=== PATIENT | male | born 1960 | race Caucasian/White ===

== ENCOUNTER 2017-09-21 10:11 | Inpatient (IN) | payer OTHER ==
[2017-09-21] MEDS ORDERED: NEOMYC/POLYMYX/BACIT 30 GM OINT (13:09)
[2017-09-21] MEDS ORDERED: POLYMYXIN/BACITRACIN 1L IRRIG (13:09)
[2017-09-21] MEDS ORDERED: MEPERIDINE 100 MG INJ (13:23)
[2017-09-21] MEDS ORDERED: NEOSTIGMINE 3 MG/3 ML SYRINGE (13:23)
[2017-09-21] MEDS ORDERED: PROPOFOL 20 ML (13:23)
[2017-09-21] MEDS ORDERED: ROCURONIUM 50 MG INJ (13:23)
[2017-09-21] MEDS ORDERED: GLYCOPYRROLATE 0.4 MG INJ (13:23)
[2017-09-21] MEDS ORDERED: LIDOCAINE 2% (SDV) 5 ML INJ (13:23)
[2017-09-21] MEDS ORDERED: SUCCINYLCHOLINE CHLORIDE 100 MG/5 ML SYG IV (13:23)
[2017-09-21] MEDS: TRANEXAMIC ACID 1,000 MG in NS 100 ML PRE-OP X1 IVPB (13:30)
[2017-09-21] MEDS ORDERED: ATROPINE 1 MG/10 ML SYRINGE (13:47)
[2017-09-21] MEDS: TRANEXAMIC ACID 1,000 MG in NS 100 ML INTRA-OP X1 IVPB (13:58)
[2017-09-21] MEDS ORDERED: CEFAZOLIN 1 GM INJ (14:55)
[2017-09-21] MEDS ORDERED: FENTAnyl 50 MCG/ML VIAL (15:14)
[2017-09-21] MEDS ORDERED: HYDROmorphONE (0.2 MG/ML) 10ML SYG IV ×2 (15:23→15:30)
[2017-09-21] MEDS ORDERED: ONDANSETRON 4 MG INJ IV ×2 (15:30→21:30)
[2017-09-21] MEDS ORDERED: METOCLOPRAMIDE 10 MG INJ IV (15:30)
[2017-09-21] MEDS ORDERED: LABETALOL HCL 20MG INJ IV (15:30)
[2017-09-21] MEDS ORDERED: MEPERIDINE 25 MG INJ IV (15:30)
[2017-09-21] MEDS ORDERED: hydrALAzine 20 MG INJ IV (15:30)
[2017-09-21] MEDS ORDERED: FENTAnyl 50 MCG/ML VIAL IV ×2 (15:30)
[2017-09-21] MEDS ORDERED: EPHEDrine SULFATE 50 MG/5 ML SYG IV (15:30)
[2017-09-21] MEDS ORDERED: MIDAZOLAM 1 MG/ML 2 ML INJ IV (15:30)
[2017-09-21] MEDS ORDERED: OXYCODONE/ACETAMINOPHEN (5/325) TAB PO ×2 (15:30)
[2017-09-21] MEDS: HYDROmorphONE (0.2 MG/ML) 10ML SYG IV ×2 (15:33→15:51)
[2017-09-21] MEDS: DIPHENHYDRAMINE 50 MG INJ IV (15:51)
[2017-09-21] MEDS ORDERED: HYDROmorphONE 0.2 MG/ML PCA (15:58)
[2017-09-21] MEDS ORDERED: NALOXONE (0.4 MG/ML) INJ IV (16:00)
[2017-09-21] MEDS: HYDROmorphONE 0.2 MG/ML PCA IV (16:05)
[2017-09-21] MEDS ORDERED: CEFAZOLIN 1 GM/50 ML (PMX) 50 ML IVPB (16:22)
[2017-09-21] MEDS: FENTAnyl 50 MCG/ML VIAL IV (16:23)
[2017-09-21] MEDS: CEFAZOLIN 1 GM/50 ML (PMX) 50 ML IVPB ×2 (16:32→21:29)
[2017-09-21 18:11] LABS: HEMATOCRIT 37.1 % (42.0-52.0); HEMOGLOBIN 12.4 g/dl (14.0-18.0)
[2017-09-21 18:29] LABS: ANION GAP 12 (8-16); BLOOD UREA NITROGEN 18 mg/dl (7-20); CALCIUM 8.8 mg/dl (8.4-10.2); CARBON DIOXIDE 28 mmol/L (21-31); CHLORIDE 105 mmol/L (97-110); CREATININE 0.99 mg/dl (0.61-1.24); GLUCOSE 106 mg/dl (70-220); POTASSIUM 4.4 mmol/L (3.5-5.1); SODIUM 141 mmol/L (135-144)
[2017-09-22] MEDS: HYDROmorphONE 0.2 MG/ML PCA IV ×2 (00:30→18:40)
[2017-09-22 05:49] LABS: ADD MAN DIFF? NO
[2017-09-22 06:03] LABS: WHITE BLOOD COUNT 9.4 10^3/ul (4.8-10.8)
[2017-09-22 06:03] LABS: BASOPHILS % 0.2 % (0.0-2.0); EOSINOPHILS % 0.3 % (0.0-7.0); HEMATOCRIT 32.2 % (42.0-52.0); LYMPHOCYTES # 1.5 10^3/ul (0.8-2.9); LYMPHOCYTES % 16.3 % (15.0-51.0); MEAN CORPUSCULAR HEMOGLOBIN 31.9 pg (29.0-33.0); MEAN CORPUSCULAR HGB CONC 34.2 g/dl (32.0-37.0); MEAN CORPUSCULAR VOLUME 93.3 fl (82.0-101.0); MEAN PLATELET VOLUME 9.5 fl (7.4-10.4); MONOCYTE # 1.1 10^3/ul (0.3-0.9); NEUTROPHIL # 6.6 10^3/ul (1.6-7.5); NEUTROPHILS % 70.9 % (39.0-77.0); PLATELET COUNT 198 10^3/UL (140-415); RED BLOOD COUNT 3.45 10^6/ul (4.70-6.10); RED CELL DISTRIBUTION WIDTH 13.1 % (11.5-14.5)
[2017-09-22] MEDS: CEFAZOLIN 1 GM/50 ML (PMX) 50 ML IVPB ×2 (06:12→14:55)
[2017-09-22 06:31] LABS: ANION GAP 10 (8-16); BLOOD UREA NITROGEN 17 mg/dl (7-20); CALCIUM 8.3 mg/dl (8.4-10.2); CARBON DIOXIDE 30 mmol/L (21-31); CHLORIDE 101 mmol/L (97-110); CREATININE 1.02 mg/dl (0.61-1.24); GLUCOSE 103 mg/dl (70-220); SODIUM 137 mmol/L (135-144)
[2017-09-22] MEDS: ASPIRIN 81 MG TAB PO (08:59)
[2017-09-22] MEDS: AMLODIPINE 10 MG TAB PO (09:00)
[2017-09-22] MEDS: LISINOPRIL 20 MG TAB PO (09:00)
[2017-09-22] MEDS: ATORVASTATIN 80 MG TAB PO (20:32)
[2017-09-23] MEDS: HYDROmorphONE 0.2 MG/ML PCA IV (05:20)
[2017-09-23 05:33] LABS: ADD MAN DIFF? NO
[2017-09-23 05:46] LABS: WHITE BLOOD COUNT 10.4 10^3/ul (4.8-10.8)
[2017-09-23 05:46] LABS: BASOPHILS % 0.3 % (0.0-2.0); EOSINOPHILS # 0.1 10^3/ul (0.0-0.5); EOSINOPHILS % 0.6 % (0.0-7.0); HEMATOCRIT 28.9 % (42.0-52.0); HEMOGLOBIN 9.7 g/dl (14.0-18.0); LYMPHOCYTES # 1.5 10^3/ul (0.8-2.9); LYMPHOCYTES % 14.5 % (15.0-51.0); MEAN CORPUSCULAR HEMOGLOBIN 31.4 pg (29.0-33.0); MEAN CORPUSCULAR HGB CONC 33.6 g/dl (32.0-37.0); MEAN CORPUSCULAR VOLUME 93.5 fl (82.0-101.0); MEAN PLATELET VOLUME 9.7 fl (7.4-10.4); MONOCYTE # 1.4 10^3/ul (0.3-0.9); MONOCYTES % 13.4 % (0.0-11.0); NEUTROPHIL # 7.3 10^3/ul (1.6-7.5); NEUTROPHILS % 70.9 % (39.0-77.0); PLATELET COUNT 178 10^3/UL (140-415); RED BLOOD COUNT 3.09 10^6/ul (4.70-6.10); RED CELL DISTRIBUTION WIDTH 13.2 % (11.5-14.5)
[2017-09-23 07:44] LABS: ANION GAP 10 (8-16); BLOOD UREA NITROGEN 14 mg/dl (7-20); CALCIUM 8.8 mg/dl (8.4-10.2); CARBON DIOXIDE 31 mmol/L (21-31); CHLORIDE 101 mmol/L (97-110); CREATININE 1.09 mg/dl (0.61-1.24); GLUCOSE 107 mg/dl (70-220); POTASSIUM 4.4 mmol/L (3.5-5.1); SODIUM 138 mmol/L (135-144)
[2017-09-23] MEDS: HYDROCODONE/APAP (10/325) TAB PO ×3 (09:55→20:46)
[2017-09-23] MEDS: LISINOPRIL 20 MG TAB PO (09:56)
[2017-09-23] MEDS: AMLODIPINE 10 MG TAB PO (09:56)
[2017-09-23] MEDS: ASPIRIN 81 MG TAB PO (09:56)
[2017-09-23] MEDS: DOCUSATE SODIUM 100 MG CAP PO ×2 (09:57→20:44)
[2017-09-23] MEDS: ATORVASTATIN 80 MG TAB PO (20:44)
[2017-09-24] MEDS: HYDROCODONE/APAP (10/325) TAB PO ×2 (04:24→08:33)
[2017-09-24 05:15] LABS: ADD MAN DIFF? NO
[2017-09-24 05:24] LABS: BASOPHILS % 0.2 % (0.0-2.0); EOSINOPHILS # 0.1 10^3/ul (0.0-0.5); HEMATOCRIT 26.7 % (42.0-52.0); LYMPHOCYTES # 1.7 10^3/ul (0.8-2.9); LYMPHOCYTES % 17.9 % (15.0-51.0); MEAN CORPUSCULAR HEMOGLOBIN 30.9 pg (29.0-33.0); MEAN CORPUSCULAR HGB CONC 33.7 g/dl (32.0-37.0); MEAN CORPUSCULAR VOLUME 91.8 fl (82.0-101.0); MEAN PLATELET VOLUME 9.4 fl (7.4-10.4); MONOCYTE # 1.1 10^3/ul (0.3-0.9); MONOCYTES % 12.1 % (0.0-11.0); NEUTROPHIL # 6.4 10^3/ul (1.6-7.5); NEUTROPHILS % 68.3 % (39.0-77.0); PLATELET COUNT 171 10^3/UL (140-415); RED BLOOD COUNT 2.91 10^6/ul (4.70-6.10); RED CELL DISTRIBUTION WIDTH 12.9 % (11.5-14.5)
[2017-09-24 05:24] LABS: WHITE BLOOD COUNT 9.3 10^3/ul (4.8-10.8)
[2017-09-24 06:02] LABS: ANION GAP 12 (8-16); BLOOD UREA NITROGEN 16 mg/dl (7-20); CALCIUM 8.8 mg/dl (8.4-10.2); CARBON DIOXIDE 29 mmol/L (21-31); CHLORIDE 102 mmol/L (97-110); CREATININE 1.07 mg/dl (0.61-1.24); GLUCOSE 112 mg/dl (70-220); SODIUM 139 mmol/L (135-144)
[2017-09-24] MEDS: LISINOPRIL 20 MG TAB PO (08:34)
[2017-09-24] MEDS: ASPIRIN 81 MG TAB PO (08:34)
[2017-09-24] MEDS: AMLODIPINE 10 MG TAB PO (08:34)
[2017-09-24] MEDS: DOCUSATE SODIUM 100 MG CAP PO (08:34)
== END 2017-09-24 15:05 | disposition home or self-care (01) | DRG 470 ==
LOC: REC 10:11 → MS1 16:50
PROC: 0SRD0J9 Replacement of Left Knee Joint with Synthetic Substitute, Cemented, Open Approach (ICD-10-PCS; principal; 2017-09-21 13:23)
DX: M17.12 Unilateral primary osteoarthritis, left knee (principal); E66.9 Obesity, unspecified; Z68.30 Body mass index [BMI] 30.0-30.9, adult; Z95.1 Presence of aortocoronary bypass graft; I10 Essential (primary) hypertension; D64.9 Anemia, unspecified
CPT/HCPCS: 80048; 85014; 85018; 85025; 87086; 88304; 88311; 97110; 97116; 97161; 97530